=== PATIENT | female | born 1955 | race Caucasian/White ===

== ENCOUNTER 2017-07-24 18:05 | Inpatient (IN) | payer OTHER ==
[~2017-07-24] VITALS: Ht 162.6 cm; Wt 112.5 kg
[2017-07-24] MEDS ORDERED: SODIUM CHLORIDE 0.9% 1000ML 1,000 ML IV STA (18:07)
[2017-07-24] MEDS ORDERED: MORPHINE SULFATE 4 MG/ML SYR IV STA (18:07)
[2017-07-24] MEDS ORDERED: ONDANSETRON HCL INJ 2 MG/ML VIAL IV STA (18:07)
[2017-07-24] MEDS ORDERED: LIDOCAINE VISC 2% SOLN 15 ML UDC PO ONE (18:15)
[2017-07-24] MEDS ORDERED: MAGNESIUM/ALUMINUM/SIMETHICONE 30 ML UDC PO ONE (18:15)
[2017-07-24] MEDS ORDERED: BELLADONNA ALK/PHENOBARBITAL 5 ML UDC PO ONE (18:25)
[2017-07-24 18:40] LABS: BASOPHILS # (AUTO) 0.1 (0.0-0.1); BASOPHILS % 0.3 % (0.0-1.0); HEMATOCRIT 39.1 % (34.2-44.1); HEMOGLOBIN 13.4 g/dL (12.0-16.0); LYMPHOCYTES # (AUTO) 1.2 (1.0-3.2); LYMPHOCYTES % 4.8 % (18.0-39.1); MEAN CORPUSCULAR HEMOGLOBIN 30.2 pg (28-32); MEAN CORPUSCULAR HGB CONC 34.3 g/dL (31-35); MEAN CORPUSCULAR VOLUME 88.3 fL (81-99); MONOCYTES # (AUTO) 1.9 (0.2-0.8); MONOCYTES % 7.2 % (4.4-11.3); NEUTROPHILS # (AUTO) 22.4 (2.1-6.9); NEUTROPHILS % 86.9 % (38.7-80.0); PLATELET COUNT 251 x10e3/uL (140-360); RED BLOOD COUNT 4.43 x10e6/uL (3.6-5.1)
[2017-07-24] MEDS ORDERED: DIATRIZOATE MEGL/DIATRIZOA SOD 30 ML BTL PO ONE (18:57)
[2017-07-24 19:06] LABS: ALANINE AMINOTRANSFERASE 15 IU/L (0-55); ALBUMIN 3.8 g/dL (3.5-5.0); ALKALINE PHOSPHATASE 99 IU/L (40-150); ANION GAP 12.8 mmol/L (8-16); BLOOD UREA NITROGEN 16 mg/dL (7-26); BUN/CREATININE RATIO 16 (6-25); CARBON DIOXIDE 28 mmol/L (22-29); CHLORIDE 102 mmol/L (98-107); CREATINE KINASE 63 IU/L (29-168); CREATININE, SERUM 1.03 mg/dL (0.57-1.11); EST GLOMERULAR FILTRATION RATE 55 ML/MIN (60-); GLUCOSE 146 mg/dL (74-118); LIPASE 24 U/L (8-78); POTASSIUM 3.8 mmol/L (3.5-5.1); SODIUM 139 mmol/L (136-145)
[2017-07-24] MEDS ORDERED: MORPHINE SULFATE 2 MG/ML SYR ONE (19:06)
[2017-07-24] MEDS ORDERED: METRONIDAZOLE 500MG/NS 100ML 100 ML IV STA (19:49)
[2017-07-24] MEDS ORDERED: PIPER-TAZ 3.375 GM 50 ML IV STA (19:49)
[2017-07-24 20:05] LABS: BILIRUBIN,URINE NEGATIVE (NEGATIVE); CLARITY,URINE HAZY (CLEAR); COLOR,URINE YELLOW (YELLOW); KETONES,URINE 2+ (NEGATIVE); LEUKOCYTE ESTERASE ,URINE 2+ (NEGATIVE); NITRITE,URINE NEGATIVE (NEGATIVE); URINE UROBILINOGEN 0.2 mg/dL (0.2 - 1)
[2017-07-24 20:20] LABS: PROTEIN,URINE DIPSTICK 1+ (NEGATIVE)
[2017-07-24 20:23] LABS: BACTERIA,URINE FEW /HPF; EPITHELIAL CELLS,URINE FEW /LPF; WBC,URINE (MAN) 21-50 /HPF (0-5)
[2017-07-24] MEDS ORDERED: IOPAMIDOL 370 MG/ML 200 ML INFUS..BTL INJ ONE (20:35)
[2017-07-24] MEDS ORDERED: SODIUM CHLORIDE 0.9% 50ML 50 ML ONE (20:35)
--- NOTE | 2017-07-24 20:41 | Diagnostic Imaging Report ---
ADDENDUM #1 IMPRESSION: Correlation with CT abdomen with contrast performed later on the same day, demonstrate normal gallbladder wall thickening without pericholecystic inflammatory changes not supporting suspected acute cholecystitis. In addition, CT revealed acute appendicitis; please refer to report of that examination. This was discussed with Dr. Dumont at 8:50 PM on 07/24/2017. Signed by: Dr. Azalea Shelby M.D. on 07/24/2017 8:57 PM ORIGINAL REPORT EXAM: Gallbladder Ultrasound INDICATION: Right upper quadrant pain. COMPARISON: None. TECHNIQUE: Transverse and longitudinal images of the gallbladder were obtained. FINDINGS: Liver: 14.9 cm in length. Heterogeneous increased echogenicity. Gallbladder: Hydropic measuring 10.0 x 5.7 x 6.3 cm. Stones/Sludge: Subtle echogenic focus in the gallbladder neck suggesting calculi. Wall: 0.3 cm, upper limits of normal. Appearance: No wall thickening, pericholecystic fluid or hydrops. Sonographic Baneulos's Sign: Positive. Bile Ducts: Intrahepatic Ducts: No dilatation Extrahepatic Ducts: Common bile duct measures 0.55 cm, no dilatation Pancreas not well visualized due to shadowing from overlying bowel gas. Free Fluid: No ascites or pleural effusion IMPRESSION: 1. Gallbladder hydrops. Probable cholelithiasis. Gallbladder wall within upper limits of normal for thickness and a positive Banuelos's sign; the constellation of findings are concerning for acute calculus cholecystitis in the proper clinical setting. Signed by: Dr. Azalea Shelby M.D. on 07/24/2017 8:37 PM
--- NOTE | 2017-07-24 20:49 | Diagnostic Imaging Report ---
EXAMINATION: CHEST SINGLE (PORTABLE) INDICATION: FEVER ABD PAIN ELEV WBC COMPARISON: None FINDINGS: TUBES and LINES: None. LUNGS: Lungs are well inflated. Lungs are clear. There is no evidence of pneumonia or pulmonary edema. PLEURA: No pleural effusion or pneumothorax. HEART AND MEDIASTINUM: The cardiomediastinal silhouette is unremarkable. BONES AND SOFT TISSUES: No acute osseous lesion. Soft tissues are unremarkable. UPPER ABDOMEN: No free air under the diaphragm. IMPRESSION: No acute thoracic abnormality. Signed by: Dr. Azalea Shelby M.D. on 07/24/2017 8:46 PM
--- NOTE | 2017-07-24 20:59 | Diagnostic Imaging Report ---
EXAM: CT Abdomen and Pelvis WITH contrast INDICATION: Right-sided abdominal pain. Concern for appendicitis. COMPARISON: None. TECHNIQUE: Abdomen and pelvis were scanned utilizing a multidetector helical scanner from the lung base to the pubic symphysis after administration of IV contrast. Coronal and sagittal reformations were obtained. Routine protocol was performed. Scan was performed when during portal venous phase. IV CONTRAST: 150 mL of Isovue 370 ORAL CONTRAST: Gastrografin and water mixture. RADIATION DOSE: Total DLP: 827.93 mGy*cm Estimated effective dose: (DLP x 0.015 x size factor) mSv COMPLICATIONS: None FINDINGS: LINES and TUBES: None. LOWER THORAX: Unremarkable HEPATOBILIARY: No focal hepatic lesions. No biliary ductal dilation. GALLBLADDER: No calcified calculi in the gallbladder neck. No wall thickening. SPLEEN: No splenomegaly. PANCREAS: No focal masses or ductal dilatation. ADRENALS: No adrenal nodules KIDNEYS/URETERS: Kidneys enhance symmetrically. No hydronephrosis. No cystic or solid mass lesions. 2 mm calcification in lower pole of the right kidney on image 39 series 2 associated with cortical scarring may be sequela of infection or a nonobstructing calculus. GI TRACT: No abnormal distention, wall thickening, or evidence of bowel obstruction. Postsurgical changes involving the stomach suggesting gastric sleeve procedure. Appendix is dilated up to 1.4 cm in diameter, with significant surrounding fat stranding and trace volume fluid, consistent with a acute appendicitis. No abscess formation. Tiny, 1.0 cm diverticulum of the second portion of the duodenum. PELVIC ORGANS/BLADDER: Unremarkable. LYMPH NODES: No lymphadenopathy. VESSELS: Minimal calcification of the distal abdominal aorta and origin of celiac axis without aneurysmal dilatation. PERITONEUM / RETROPERITONEUM: No free air or fluid. BONES: Spondylosis of the lower thoracic spine. Facet arthropathy bilaterally at L5-S1. SOFT TISSUES: Unremarkable. IMPRESSION: 1. Acute appendicitis. No abscess formation. 2. Cholelithiasis. The findings on the CT examination does not support acute cholecystitis as suspected on ultrasound examination performed earlier on the same day. Discussed with Dr. Dumont at 8:50 PM on 07/24/2017. Signed by: Dr. Azalea Shelby M.D. on 07/24/2017 8:55 PM
[2017-07-24] MEDS ORDERED: ONDANSETRON HCL INJ 2 MG/ML VIAL IV PRN (21:15)
--- OUTSIDE RECORDS SUMMARY | 2017-07-24 21:30 | XMS REPORT ---
Author Author [facility] Address Unknown Phone Unavailable Care Team Providers Care Drawing Tender Name Role Phone CAMACHO FARIAS Unavailable Unavailable Problems This patient has no known problems. Allergies, Adverse Reactions, Alerts This patient has no known allergies or adverse reactions. Medications This patient has no known medications. Results Test Description Test Time Test Comments Text Results Atomic Results Result Comments CHEST SINGLE (PORTABLE) [place] [address] Patient Name: MARK PICHARDO MR #: [id number] : 1955 Age/Sex: 61/F Req #: [id number] Adm Physician: Ordered by: CAMACHO FARIAS MD Report #: [id number] Location: ER Room/Bed: Procedure: [id number] DX/CHEST SINGLE (PORTABLE) Exam Date: 07/24/17 Exam Time: 2014 REPORT STATUS: Signed EXAMINATION: CHEST SINGLE (PORTABLE) INDICATION: FEVER ABD PAIN ELEV WBC COMPARISON: None FINDINGS: TUBES and LINES: None. LUNGS: Lungs are well inflated. Lungs are clear. There is no evidence of pneumonia or pulmonary edema. PLEURA: No pleural effusion or pneumothorax. HEART AND MEDIASTINUM: The cardiomediastinal silhouette is unremarkable. BONES AND SOFT TISSUES: No acute osseous lesion. Soft tissues are unremarkable. UPPER ABDOMEN: No free air under the diaphragm. IMPRESSION: No acute thoracic abnormality. Signed by: Dr. Azalea Gordon M.D. on 07/24/2017 8:46 PM Dictated By: DONNY GORDON MD, MD 45 COPY TO: CAMACHO FARIAS MD CT ABDOMEN/PELVIS W [place] [address] Patient Name: MARK PICHARDO MR #: [id number] : 1955 Age/Sex: 61/F Req #: [id number] Adm Physician: Ordered by: ROSARIO JOHN NP Report #: [id number] Location: ER Room/Bed: Procedure: [id number] CT/CT ABDOMEN/PELVIS W Exam Date: 07/24/17 Exam Time: 2009 REPORT STATUS: Signed EXAM: CT Abdomen and Pelvis WITH contrast INDICATION: Right-sided abdominal pain. Concern for appendicitis. COMPARISON: None. TECHNIQUE: Abdomen and pelvis were scanned utilizing a multidetector helical scanner from the lung base to the pubic symphysis after administration of IV contrast. Coronal and sagittal reformations were obtained. Routine protocol was performed. Scan was performed when during portal venous phase. IV CONTRAST: 150 mL of Isovue 370 ORAL CONTRAST: Gastrografin and water mixture. RADIATION DOSE: Total DLP: 827.93 mGy*cm Estimated effective dose: (DLP x 0.015 x size factor) mSv COMPLICATIONS: None FINDINGS: LINES and TUBES: None. LOWER THORAX: Unremarkable HEPATOBILIARY: No focal hepatic lesions. No biliary ductal dilation. GALLBLADDER: No calcified calculi in the gallbladder neck. No wall thickening. SPLEEN: No splenomegaly. PANCREAS: No focal masses or ductal dilatation. ADRENALS: No adrenal nodules KIDNEYS/URETERS: Kidneys enhance symmetrically. No hydronephrosis. No cystic or solid mass lesions. 2 mm calcification in lower pole of the right kidney on image 39 series 2 associated with cortical scarring may be sequela of infection or a nonobstructing calculus. GI TRACT: No abnormal distention , wall thickening, or evidence of bowel obstruction. Postsurgical changes involving the stomach suggesting gastric sleeve procedure. Appendix is dilated up to 1.4 cm in diameter, with significant surrounding fat stranding and trace volume fluid, consistent with a acute appendicitis. No abscess formation. Tiny, 1.0 cm diverticulum of the second portion of the duodenum. PELVIC ORGANS/BLADDER: Unremarkable. LYMPH NODES: No lymphadenopathy. VESSELS: Minimal calcification of the distal abdominal aorta and origin of celiac axis without aneurysmal dilatation. PERITONEUM / RETROPERITONEUM : No free air or fluid. BONES: Spondylosis of the lower thoracic spine. Facet arthropathy bilaterally at L5-S1. SOFT TISSUES: Unremarkable. IMPRESSION: 1. Acute appendicitis. No abscess formation. 2. Cholelithiasis. The findings on the CT examination does not support acute cholecystitis as suspected on ultrasound examination performed earlier on the same day. Discussed with Dr. Farias at 8:50 PM on 07/24/2017. Signed by: Dr. Aazlea Gordon M.D. on 07/24/2017 8:55 PM Dictated By: DONNY GORDON MD, MD 54 Transcribed By: OSCAR on 07/24/172054 COPY TO: ROSARIO JOHN STRIP TANK TENDER GALLBLADDER [place] [address] Patient Name: MARK PICHARDO MR #: [id number] : 1955 Age/Sex: 61/F Req # : [id number] Adm Physician: Ordered by: ROSARIO JOHN NP Report #: [id number] Location: ER Room/Bed: Procedure: [id number] US/US GALLBLADDER Exam Date: 07/24/17 Exam Time: 1911 REPORT STATUS: Signed ADDENDUM #1 IMPRESSION: Correlation with CT abdomen with contrast performed later on the same day, demonstrate normal gallbladder wall thickening without pericholecystic inflammatory changes not supporting suspected acute cholecystitis. In addition, CT revealed acute appendicitis; please refer to report of that examination. This was discussed with Dr. Farias at 8:50 PM on . Signed by: Dr. Azalea Gordon M.D. on 07/24/2017 8:57 PM * ORIGINAL REPORT EXAM: Gallbladder Ultrasound INDICATION : Right upper quadrant pain. COMPARISON: None. TECHNIQUE: Transverse and longitudinal images of the gallbladder were obtained. FINDINGS: Liver: 14.9 cm in length. Heterogeneous increased echogenicity. Gallbladder: Hydropic measuring 10.0 x 5.7 x 6.3 cm. Stones/Sludge: Subtle echogenic focus in the gallbladder neck suggesting calculi. Wall: 0.3 cm, upper limits of normal. Appearance: No wall thickening, pericholecystic fluid or hydrops. Sonographic Banuelos's Sign: Positive. Bile Ducts: Intrahepatic Ducts: No dilatation Extrahepatic Ducts: Common bile duct measures 0.55 cm, no dilatation Pancreas not well visualized due to shadowing from overlying bowel gas. Free Fluid: No ascites or pleural effusion IMPRESSION: 1. Gallbladder hydrops. Probable cholelithiasis. Gallbladder wall within upper limits of normal for thickness and a positive Banuelos's sign; the constellation of findings are concerning for acute calculus cholecystitis in the proper clinical setting. Signed by: Dr. Azalea Gordon M.D. on 07/24/2017 8:37 PM Dictated By: DONNY GORDON MD, MD 56 Transcribed By: OSCAR on 07/24/172036 COPY TO: ROSARIO JOHN NP
[2017-07-24 21:48] VITALS: BP 128/79
[2017-07-24] MEDS: SODIUM CHLORIDE 0.9% 1000ML 1,000 ML IV SCH (21:48)
[2017-07-24] MEDS ORDERED: SYNTHROID125 MCG PO (22:25)
[2017-07-24] MEDS ORDERED: FUROSEMIDE40 MG PO (22:28)
[2017-07-25] VITALS (28 sets, daily range): BP systolic 88–140; BP diastolic 47–90
[2017-07-25] MEDS ORDERED: PIPER-TAZ 3.375 GM/50 ML BAG IV SCH
[2017-07-25] MEDS ORDERED: METRONIDAZOLE 500MG/NS 100ML IV SCH
[2017-07-25] MEDS: MORPHINE SULFATE 2 MG/ML SYR IV PRN ×3 (02:09→11:38)
[2017-07-25] MEDS: PIPER-TAZ 3.375 GM 50 ML IV SCH ×5 (02:09→20:56)
[2017-07-25] MEDS: METRONIDAZOLE 500MG/NS 100ML 100 ML IV SCH ×4 (03:05→21:25)
[2017-07-25] MEDS: SODIUM CHLORIDE 0.9% 1000ML 1,000 ML IV SCH (06:19)
[2017-07-25 06:31] LABS: BASOPHILS % 0.3 % (0.0-1.0); EOSINOPHILS % 0.3 % (0.0-6.0); HEMATOCRIT 32.7 % (34.2-44.1); HEMOGLOBIN 10.9 g/dL (12.0-16.0); LYMPHOCYTES % 6.1 % (18.0-39.1); MEAN CORPUSCULAR HEMOGLOBIN 29.9 pg (28-32); MEAN CORPUSCULAR HGB CONC 33.3 g/dL (31-35); MEAN CORPUSCULAR VOLUME 89.8 fL (81-99); MONOCYTES # (AUTO) 1.2 (0.2-0.8); MONOCYTES % 7.7 % (4.4-11.3); NEUTROPHILS # (AUTO) 13.4 (2.1-6.9); PLATELET COUNT 152 x10e3/uL (140-360); RED BLOOD COUNT 3.64 x10e6/uL (3.6-5.1); RED CELL DISTRIBUTION WIDTH 12.9 % (11.7-14.4)
[2017-07-25 06:59] LABS: BLOOD UREA NITROGEN 13 mg/dL (7-26); BUN/CREATININE RATIO 17 (6-25); CALCIUM 8.2 mg/dL (8.4-10.2); CARBON DIOXIDE 26 mmol/L (22-29); CHLORIDE 105 mmol/L (98-107); CREATININE, SERUM 0.75 mg/dL (0.57-1.11); EST GLOMERULAR FILTRATION RATE > 60 ML/MIN (60-); GLUCOSE 123 mg/dL (74-118); SODIUM 138 mmol/L (136-145)
[2017-07-25] MEDS ORDERED: METOCLOPRAMIDE HCL 10 MG/2ML VIAL IV PRN (17:00)
[2017-07-25] MEDS ORDERED: NALOXONE HCL INJ 0.4 MG/ML AMP IV PRN (17:00)
[2017-07-25] MEDS: SODIUM CHLORIDE 0.9% 250ML IRRIG IR SCH ×2 (17:00→20:53)
[2017-07-25] MEDS ORDERED: LIDOCAINE HCL 2% LOCAL INJ 5 ML SDV VIAL INJ ONE (17:00)
[2017-07-25] MEDS ORDERED: DIPHENHYDRAMINE HCL 25 MG CAP PO PRN (17:00)
[2017-07-25] MEDS ORDERED: PROPOFOL IV EMULSION 10 MG/ML 20 ML VIAL ONE (17:00)
[2017-07-25] MEDS ORDERED: HYDROMORPHONE 0.2MG/ML-SOD CHL 30ML PCA SYRINGE IV PRN (17:00)
[2017-07-25] MEDS ORDERED: SEVOFLURANE INHAL SOLN 250 ML PEN BTL ONE (17:00)
[2017-07-25] MEDS ORDERED: GLYCOPYRROLATE INJ 1MG/ 5 ML SYR ONE (17:00)
[2017-07-25] MEDS ORDERED: ROCURONIUM BROMIDE 10 MG/ML 5ML VIAL ONE (17:00)
[2017-07-25] MEDS ORDERED: ONDANSETRON HCL INJ 2 MG/ML VIAL ONE ×2 (17:00→17:55)
[2017-07-25] MEDS ORDERED: DIPHENHYDRAMINE HCL INJ 50 MG/ML VIAL IM PRN (17:00)
[2017-07-25] MEDS ORDERED: ONDANSETRON HCL INJ 2 MG/ML VIAL IV PRN (17:00)
[2017-07-25] MEDS ORDERED: ACETAMINOPHEN 1000 MG/100 ML IV PRN (17:00)
[2017-07-25] MEDS ORDERED: DEXAMETHASONE SOD PHOS INJ 4 MG/ML VIAL ONE (17:00)
[2017-07-25] MEDS ORDERED: KETOROLAC TROMETHAMINE 30 MG/ML VIAL IV PRN (17:00)
[2017-07-25] MEDS ORDERED: NEOSTIGMINE 5 MG/5ML SYR ONE (17:00)
[2017-07-25] MEDS ORDERED: LIDOCAINE HCL 2% 30 ML TUBE ONE (17:16)
[2017-07-25] MEDS ORDERED: MIDAZOLAM HCL 2 MG/2 ML VIAL ONE (17:28)
[2017-07-25] MEDS ORDERED: HYDROMORPHONE 0.2MG/ML-SOD CHL 30ML PCA SYRINGE IV ONE (17:28)
[2017-07-25] MEDS ORDERED: FENTANYL CITRATE/PF 100MCG/2 ML INJ ONE (17:28)
--- NOTE | 2017-07-25 17:53 | Operative Report ---
DATE OF PROCEDURE: July 25, 2017 PREOPERATIVE DIAGNOSIS: Acute appendicitis, retrocecal, high-riding, probably gangrenous with perforation. POSTOPERATIVE DIAGNOSIS: Acute appendicitis, retrocecal, high-riding, probably gangrenous with perforation. PROCEDURE PERFORMED: 1. Diagnostic laparoscopy. 2. Attempted laparoscopic appendectomy converted to open appendectomy. 3. Peritoneal irrigation. DRAINS: One 10 mm flat Neil-Billingsley drain and one 1/4 inch [place] drain to the wound. COMPLICATIONS: None. INDICATIONS AND FINDINGS: The patient is a morbidly obese female with a BMI of 41, admitted to the hospital complaining of abdominal pain for at least 4 days' duration. The pain was described by the patient as located in the right lower quadrant and right upper abdomen near the area of the umbilicus. She had been seen prior to the day of admission at a local clinic, and according to her history she had normal labs and was discharged home. The patient got progressively worse, came to the emergency room where a CT scan showed a very high-riding appendix consistent with appendicitis. In addition, she was found to have gallstones by ultrasound as well as a CT scan. However, there was no evidence of acute cholecystitis. INTRAOPERATIVE FINDINGS: The patient had acute appendicitis with a high-riding retrocecal appendicitis that was gangrenous, perforated and liquefacted with a fecaloid fluid collection located between the cecum and the abdominal wall with extensive fibrinous exudate. The inflammatory changes due to the appendicitis extended high into the cecum, and a cecectomy would not have accomplished the appendectomy without risking a leak. Because of this, a limited right hemicolectomy was then performed. The terminal ileum was stuck to the abdominal wall. It was difficult to separate from the abdominal wall in the lateral gutter, but in order to perform the appendectomy, we were able to do that. The anastomosis was made with a [id number] functional end-to-end stapled. DESCRIPTION OF PROCEDURE: With the patient lying on the operative table in the supine position after an administration of general endotracheal anesthesia, she was prepped and draped for diagnostic laparoscopy, possible laparoscopic appendectomy. The procedure was begun by establishing a pneumoperitoneum in the umbilical site after a stab wound was made in that location. A pneumoperitoneum was insufflated to 15 mm of pressure and then the 11-12 trocar placed in that location. We placed two other 5 mm trocars in the right upper quadrant midclavicular line area and another one in the suprapubic region to the right of the midline. We performed the laparoscopy as previously indicated. The proximal half of the appendix had pretty much evaporated, and the rest of the appendix was located posterior to the cecum. The right upper quadrant structures, including the stomach, were not well visualized due to the heaviness of her omentum, nor was the gallbladder. We decided to convert the procedure to an open one because of the severe inflammatory changes associated with appendicitis in the area of the cecum and the extension of the process to above the terminal ileum where it would have compromised the ileocecal valve in any attempts at a cecectomy. Because of this, we then converted the procedure to an open one after having tailored the incision to the location of the appendix, which was high-riding at the level of the umbilicus. A transverse Desmond-Declan muscle incision was made, deepened through the skin, subcutaneous tissue, and then the muscle-splitting abdominal entry was then performed. The cecum was mobilized along the white line of Toldt all the way to below the hepatic flexure. Proximally we mobilized the small bowel for about a foot and a half. We first had to detach it from the lateral gutter of the abdominal wall where it was stuck. After we got to a point where the small bowel was soft and pliable, as well as an area in the ascending colon that was soft and pliable and suitable for a yhii-aw-nrws anastomosis, we transected both ends with the stapler. We used the SLICK 75 stapler for both the small bowel as well as the ascending colon. We took down the blood supply to the distal small bowel and ascending colon with the Enseal Ethicon cautery. We then performed a huaw-hz-jckx anastomosis between the small bowel and the colon by excising the corners of both the small bowel and colon and then anastomosing that where it was soft with the fyxh-ii-tdlm firing of the SLICK 75 stapler with the blue load. We then applied a SLICK 90 stapler to close the rent. Prior to that, we examined the lumen of the bowel, and there was no bleeding. After firing the TA 90 stapler, we then reinforced the suture line with interrupted 3-0 silk. We closed the rent in the mesentery with a running 2-0 Vicryl. We copiously irrigated the abdomen multiple times. The anastomosis appeared to be viable. At this point, we closed the wound in layers using 1 Vicryl for all the abdominal wall layers, and 2-0 plain catgut was used for the subcutaneous tissue. The skin was closed with a combination of 2-0 silk and renata. The umbilical fascia was closed using 0 Vicryl, and then the skin was closed using renata, as well as the right midclavicular line trocar. A sterile dressing was applied. The patient tolerated the procedure well. At the end of the case and throughout the case, we performed multiple sponge and instrument counts, at least 3 of them, and they were all correct. The patient is going to be taken to the ICU for observation. Job#: [id number] EV
[2017-07-25] MEDS ORDERED: METOCLOPRAMIDE HCL 10 MG/2ML VIAL ONE (17:55)
[2017-07-25] MEDS: DEXTROSE 5%/LACTATED RINGERS 1,000 ML IV SCH (18:20)
[2017-07-25] MEDS: PANTOPRAZOLE 40 MG 10ML VIAL IV SCH (18:20)
[2017-07-26] VITALS (33 sets, daily range): BP systolic 86–156; BP diastolic 35–79
[2017-07-26] MEDS: SODIUM CHLORIDE 0.9% 250ML IRRIG IR SCH ×3 (00:47→08:21)
[2017-07-26] MEDS: DEXTROSE 5%/LACTATED RINGERS 1,000 ML IV SCH ×4 (00:47→17:50)
[2017-07-26] MEDS: PIPER-TAZ 3.375 GM 50 ML IV SCH ×4 (02:22→20:09)
[2017-07-26] MEDS: METRONIDAZOLE 500MG/NS 100ML 100 ML IV SCH ×4 (03:20→21:53)
[2017-07-26 06:13] LABS: BASOPHILS % 0.1 % (0.0-1.0); HEMATOCRIT 32.6 % (34.2-44.1); HEMOGLOBIN 10.9 g/dL (12.0-16.0); LYMPHOCYTES # (AUTO) 0.7 (1.0-3.2); LYMPHOCYTES % 4.1 % (18.0-39.1); MEAN CORPUSCULAR HEMOGLOBIN 29.9 pg (28-32); MEAN CORPUSCULAR HGB CONC 33.4 g/dL (31-35); MEAN CORPUSCULAR VOLUME 89.6 fL (81-99); MONOCYTES # (AUTO) 1.3 (0.2-0.8); MONOCYTES % 7.9 % (4.4-11.3); NEUTROPHILS # (AUTO) 14.4 (2.1-6.9); NEUTROPHILS % 87.5 % (38.7-80.0); PLATELET COUNT 213 x10e3/uL (140-360); RED BLOOD COUNT 3.64 x10e6/uL (3.6-5.1); RED CELL DISTRIBUTION WIDTH 12.7 % (11.7-14.4)
[2017-07-26 06:42] LABS: ALBUMIN 2.5 g/dL (3.5-5.0); ALBUMIN/GLOBULIN RATIO 0.7 (0.8-2.0); ANION GAP 10.3 mmol/L (8-16); CALCIUM 8.5 mg/dL (8.4-10.2); CREATININE, SERUM 0.96 mg/dL (0.57-1.11); POTASSIUM 4.3 mmol/L (3.5-5.1)
[2017-07-26 07:29] LABS: BAND NEUTROPHILS % (MANUAL) 11 %; LYMPHOCYTES % (MANUAL) 4 % (19-48); MONOCYTES % (MANUAL) 9 % (3.4-9.0); NEUTROPHILS % (MANUAL) 76 % (40-74)
[2017-07-26 07:30] LABS: PLATELET ESTIMATE ADEQUATE; PLATELET MORPHOLOGY COMMENT NORMAL; RBC MORPHOLOGY COMMENT NORMAL
[2017-07-26] MEDS: PANTOPRAZOLE 40 MG 10ML VIAL IV SCH (17:50)
[2017-07-27] VITALS (7 sets, daily range): BP systolic 109–136; BP diastolic 51–61
[2017-07-27] MEDS: PIPER-TAZ 3.375 GM 50 ML IV SCH ×4 (02:21→20:32)
[2017-07-27] MEDS: DEXTROSE 5%/LACTATED RINGERS 1,000 ML IV SCH ×3 (02:21→21:57)
[2017-07-27] MEDS: HYDROMORPHONE 0.2MG/ML-SOD CHL 30ML PCA SYRINGE IV PRN ×2 (02:36→11:00)
[2017-07-27] MEDS: METRONIDAZOLE 500MG/NS 100ML 100 ML IV SCH ×4 (03:33→21:10)
[2017-07-27 06:34] LABS: BASOPHILS % 0.1 % (0.0-1.0); EOSINOPHILS % 0.1 % (0.0-6.0); HEMATOCRIT 28.9 % (34.2-44.1); HEMOGLOBIN 9.6 g/dL (12.0-16.0); LYMPHOCYTES # (AUTO) 1.1 (1.0-3.2); LYMPHOCYTES % 7.7 % (18.0-39.1); MEAN CORPUSCULAR HEMOGLOBIN 29.6 pg (28-32); MEAN CORPUSCULAR HGB CONC 33.2 g/dL (31-35); MEAN CORPUSCULAR VOLUME 89.2 fL (81-99); MONOCYTES # (AUTO) 1.2 (0.2-0.8); MONOCYTES % 8.4 % (4.4-11.3); NEUTROPHILS # (AUTO) 11.6 (2.1-6.9); NEUTROPHILS % 83.1 % (38.7-80.0); PLATELET COUNT 252 x10e3/uL (140-360); RED BLOOD COUNT 3.24 x10e6/uL (3.6-5.1)
[2017-07-27 07:05] LABS: ALANINE AMINOTRANSFERASE 22 IU/L (0-55); ALBUMIN 2.3 g/dL (3.5-5.0); ALBUMIN/GLOBULIN RATIO 0.7 (0.8-2.0); ALKALINE PHOSPHATASE 77 IU/L (40-150); ANION GAP 8.7 mmol/L (8-16); BLOOD UREA NITROGEN 15 mg/dL (7-26); BUN/CREATININE RATIO 18 (6-25); CALCIUM 8.7 mg/dL (8.4-10.2); CARBON DIOXIDE 27 mmol/L (22-29); CHLORIDE 105 mmol/L (98-107); CREATININE, SERUM 0.84 mg/dL (0.57-1.11); EST GLOMERULAR FILTRATION RATE > 60 ML/MIN (60-); GLUCOSE 140 mg/dL (74-118); POTASSIUM 3.7 mmol/L (3.5-5.1); SODIUM 137 mmol/L (136-145)
[2017-07-27] MEDS ORDERED: HYDROMORPHONE 1MG/1ML INJ IV PRN (18:00)
[2017-07-27] MEDS: PANTOPRAZOLE 40 MG 10ML VIAL IV SCH (18:09)
[2017-07-27] MEDS: HYDROCODONE/APAP 7.5MG-325MG 1 EA TAB PO PRN (19:50)
[2017-07-28] VITALS (7 sets, daily range): BP systolic 109–140; BP diastolic 51–64
[2017-07-28] MEDS: PIPER-TAZ 3.375 GM 50 ML IV SCH ×4 (01:45→20:00)
[2017-07-28] MEDS: HYDROCODONE/APAP 7.5MG-325MG 1 EA TAB PO PRN ×4 (01:45→19:10)
[2017-07-28] MEDS: METRONIDAZOLE 500MG/NS 100ML 100 ML IV SCH ×4 (02:24→21:00)
[2017-07-28 08:57] LABS: BASOPHILS # (AUTO) 0.1 (0.0-0.1); BASOPHILS % 0.6 % (0.0-1.0); EOSINOPHILS # (AUTO) 0.2 (0.0-0.4); EOSINOPHILS % 1.7 % (0.0-6.0); HEMATOCRIT 32.5 % (34.2-44.1); HEMOGLOBIN 10.4 g/dL (12.0-16.0); LYMPHOCYTES # (AUTO) 1.8 (1.0-3.2); LYMPHOCYTES % 13.6 % (18.0-39.1); MEAN CORPUSCULAR HEMOGLOBIN 29.6 pg (28-32); MEAN CORPUSCULAR VOLUME 92.6 fL (81-99); MONOCYTES # (AUTO) 0.9 (0.2-0.8); NEUTROPHILS # (AUTO) 10.1 (2.1-6.9); NEUTROPHILS % 75.5 % (38.7-80.0); PLATELET COUNT 351 x10e3/uL (140-360); RED BLOOD COUNT 3.51 x10e6/uL (3.6-5.1); RED CELL DISTRIBUTION WIDTH 13.2 % (11.7-14.4)
[2017-07-28 09:17] LABS: ALANINE AMINOTRANSFERASE 24 IU/L (0-55); ALBUMIN 2.5 g/dL (3.5-5.0); ALBUMIN/GLOBULIN RATIO 0.7 (0.8-2.0); ALKALINE PHOSPHATASE 101 IU/L (40-150); ANION GAP 12.2 mmol/L (8-16); BLOOD UREA NITROGEN 11 mg/dL (7-26); BUN/CREATININE RATIO 13 (6-25); CALCIUM 9.1 mg/dL (8.4-10.2); CARBON DIOXIDE 30 mmol/L (22-29); CHLORIDE 102 mmol/L (98-107); CREATININE, SERUM 0.85 mg/dL (0.57-1.11); EST GLOMERULAR FILTRATION RATE > 60 ML/MIN (60-); GLUCOSE 100 mg/dL (74-118); POTASSIUM 3.2 mmol/L (3.5-5.1); SODIUM 141 mmol/L (136-145)
[2017-07-28] MEDS: DEXTROSE 5%/LACTATED RINGERS 1,000 ML IV SCH (15:30)
[2017-07-28] MEDS: POTASSIUM CHLORIDE 20MEQ/100ML 100 ML IV SCH ×2 (15:39→18:04)
[2017-07-28] MEDS: PANTOPRAZOLE 40 MG 10ML VIAL IV SCH (18:04)
[2017-07-29] VITALS (8 sets, daily range): BP systolic 110–169; BP diastolic 51–72
[2017-07-29] MEDS: PIPER-TAZ 3.375 GM 50 ML IV SCH ×4 (02:00→20:30)
[2017-07-29] MEDS: METRONIDAZOLE 500MG/NS 100ML 100 ML IV SCH ×2 (03:00→08:50)
[2017-07-29 06:51] LABS: BASOPHILS # (AUTO) 0.1 (0.0-0.1); BASOPHILS % 0.9 % (0.0-1.0); EOSINOPHILS # (AUTO) 0.5 (0.0-0.4); EOSINOPHILS % 3.7 % (0.0-6.0); HEMATOCRIT 30.9 % (34.2-44.1); HEMOGLOBIN 10.1 g/dL (12.0-16.0); LYMPHOCYTES # (AUTO) 1.7 (1.0-3.2); LYMPHOCYTES % 13.9 % (18.0-39.1); MEAN CORPUSCULAR HEMOGLOBIN 29.8 pg (28-32); MEAN CORPUSCULAR HGB CONC 32.7 g/dL (31-35); MEAN CORPUSCULAR VOLUME 91.2 fL (81-99); MONOCYTES # (AUTO) 0.9 (0.2-0.8); MONOCYTES % 7.6 % (4.4-11.3); NEUTROPHILS # (AUTO) 8.6 (2.1-6.9); NEUTROPHILS % 70.2 % (38.7-80.0); PLATELET COUNT 337 x10e3/uL (140-360); RED BLOOD COUNT 3.39 x10e6/uL (3.6-5.1); RED CELL DISTRIBUTION WIDTH 13.2 % (11.7-14.4)
[2017-07-29 07:44] LABS: ANION GAP 10.4 mmol/L (8-16); BLOOD UREA NITROGEN 9 mg/dL (7-26); BUN/CREATININE RATIO 11 (6-25); CALCIUM 8.6 mg/dL (8.4-10.2); CARBON DIOXIDE 28 mmol/L (22-29); CHLORIDE 105 mmol/L (98-107); CREATININE, SERUM 0.84 mg/dL (0.57-1.11); EST GLOMERULAR FILTRATION RATE > 60 ML/MIN (60-); GLUCOSE 137 mg/dL (74-118); POTASSIUM 3.4 mmol/L (3.5-5.1); SODIUM 140 mmol/L (136-145)
[2017-07-29 08:09] LABS: BAND NEUTROPHILS % (MANUAL) 1 %; EOSINOPHILS % (MANUAL) 4 % (0-7); LYMPHOCYTES % (MANUAL) 15 % (19-48); MONOCYTES % (MANUAL) 6 % (3.4-9.0); NEUTROPHILS % (MANUAL) 74 % (40-74); NUCLEATED RED BLOOD CELLS 1
[2017-07-29 08:10] LABS: PLATELET ESTIMATE ADEQUATE; PLATELET MORPHOLOGY COMMENT NORMAL; POLYCHROMASIA FEW; RBC MORPHOLOGY COMMENT NORMAL
[2017-07-29] MEDS: HYDROCODONE/APAP 7.5MG-325MG 1 EA TAB PO PRN ×3 (08:50→18:26)
[2017-07-29] MEDS ORDERED: POTASSIUM CHLORIDE 20 MEQ TAB CR PO STA (08:51)
[2017-07-29] MEDS ORDERED: LOPERAMIDE HCL 2 MG CAP PO ONE (09:00)
[2017-07-29] MEDS: LACTOBACILLUS ACIDOPHILUS CAPSULE PO SCH (09:15)
[2017-07-29] MEDS: POTASSIUM CHLORIDE 20 MEQ in DEXTROSE 5%/LACTATED RINGERS 1,000 ML IV SCH (10:38)
[2017-07-29] MEDS ORDERED: POTASSIUM CHLORIDE 20 MEQ TAB CR PO SCH (14:00)
[2017-07-29] MEDS: METRONIDAZOLE 500 MG TAB PO SCH ×2 (14:34→21:52)
[2017-07-29] MEDS: PANTOPRAZOLE 40 MG 10ML VIAL IV SCH (17:08)
[2017-07-30] VITALS (10 sets, daily range): BP systolic 100–176; BP diastolic 57–70
[2017-07-30] MEDS: HYDROCODONE/APAP 7.5MG-325MG 1 EA TAB PO PRN ×5 (00:38→21:30)
[2017-07-30] MEDS: PIPER-TAZ 3.375 GM 50 ML IV SCH ×4 (01:30→20:05)
[2017-07-30] MEDS: METRONIDAZOLE 500 MG TAB PO SCH ×3 (06:19→21:30)
[2017-07-30] MEDS: POTASSIUM CHLORIDE 20 MEQ in DEXTROSE 5%/LACTATED RINGERS 1,000 ML IV SCH (06:20)
[2017-07-30] MEDS: LACTOBACILLUS ACIDOPHILUS CAPSULE PO SCH (08:06)
[2017-07-30 09:22] LABS: BASOPHILS # (AUTO) 0.1 (0.0-0.1); BASOPHILS % 0.7 % (0.0-1.0); EOSINOPHILS # (AUTO) 0.4 (0.0-0.4); EOSINOPHILS % 2.9 % (0.0-6.0); HEMATOCRIT 33.3 % (34.2-44.1); HEMOGLOBIN 10.7 g/dL (12.0-16.0); LYMPHOCYTES # (AUTO) 2.1 (1.0-3.2); MEAN CORPUSCULAR HEMOGLOBIN 29.6 pg (28-32); MEAN CORPUSCULAR HGB CONC 32.1 g/dL (31-35); MEAN CORPUSCULAR VOLUME 92.2 fL (81-99); MONOCYTES # (AUTO) 1.1 (0.2-0.8); NEUTROPHILS # (AUTO) 10.7 (2.1-6.9); NEUTROPHILS % 71.5 % (38.7-80.0); PLATELET COUNT 402 x10e3/uL (140-360); RED BLOOD COUNT 3.61 x10e6/uL (3.6-5.1); RED CELL DISTRIBUTION WIDTH 13.3 % (11.7-14.4)
[2017-07-30 09:47] LABS: ANION GAP 9.4 mmol/L (8-16); BLOOD UREA NITROGEN 7 mg/dL (7-26); BUN/CREATININE RATIO 9 (6-25); CALCIUM 8.8 mg/dL (8.4-10.2); CARBON DIOXIDE 29 mmol/L (22-29); CHLORIDE 104 mmol/L (98-107); CREATININE, SERUM 0.81 mg/dL (0.57-1.11); EST GLOMERULAR FILTRATION RATE > 60 ML/MIN (60-); GLUCOSE 117 mg/dL (74-118); POTASSIUM 3.4 mmol/L (3.5-5.1); SODIUM 139 mmol/L (136-145)
[2017-07-30] MEDS ORDERED: POTASSIUM CHLORIDE 20 MEQ TAB CR PO ONE ×2 (11:15→15:00)
[2017-07-30] MEDS: PANTOPRAZOLE 40 MG 10ML VIAL IV SCH (17:27)
[2017-07-31 00:30] VITALS: BP 115/55
[2017-07-31] MEDS: PIPER-TAZ 3.375 GM 50 ML IV SCH ×3 (02:55→13:50)
[2017-07-31 04:00] VITALS: BP 146/66
[2017-07-31] MEDS: HYDROCODONE/APAP 7.5MG-325MG 1 EA TAB PO PRN ×2 (06:00→13:55)
[2017-07-31] MEDS: METRONIDAZOLE 500 MG TAB PO SCH ×2 (06:39→13:50)
[2017-07-31 09:07] VITALS: BP 122/56
[2017-07-31] MEDS: LACTOBACILLUS ACIDOPHILUS CAPSULE PO SCH (09:52)
--- NOTE | 2017-07-31 11:20 | Discharge Summary ---
PROCEDURES PERFORMED DURING THIS HOSPITALIZATION: Diagnostic laparoscopy and attempted laparoscopic appendectomy converted to right hemicolectomy by Dr. Alondra Knox on 07/25/2017. DISCHARGE DIAGNOSIS: Acute appendicitis, retrocecal, with perforation and peritonitis. HISTORY OF PRESENT ILLNESS: The patient is a 62-year-old female admitted to the hospital complaining of abdominal pain for several days. The patient was initially seen at a local clinic on the day of admission and then sent to the hospital. The patient was evaluated at [facility] where she was found to have right lower quadrant tenderness and a CT scan of the abdomen that revealed a high-riding appendix consistent with appendicitis. She was also found to have gallstones, but there was no evidence of cholecystitis. The patient's admission white count was 25,000. HOSPITALIZATION COURSE: Following admission, the patient was given intravenous antibiotics, hydrated, stabilized and underwent the above procedure on 07/25/2017. Postoperatively, the patient was monitored in the ICU for 1 day, then transferred to the floor. She was given intravenous antibiotics. The culture and sensitivities revealed E. coli sensitive to Zosyn which she was on as well as klebsiella sensitive to the Zosyn she had been treated with. She was also treated intravenously with Flagyl. She had a diet that was advanced to regular on the day of discharge. She did develop postop diarrhea that resolved by the time of discharge. The patient was discharged home in stable condition. She had a Neil-Billingsley drain to drain the pelvis and a Isr[place] drain that were removed the day prior to discharge. The wound was healing well. The patient was discharged in stable condition afebrile and tolerating her regular diet well. DISCHARGE MEDICATIONS: Included: 1. Levaquin 500 mg 1 p.o. daily for 2 days. 2. Flagyl 250 mg every 8 hours for 2 days. 3. Tylenol No. 3 one p.o. q.4-6 h. p.r.n. for pain, #40 with no refills. 4. Phenergan 25 mg 1 p.o. q.4-6 h. p.r.n. for nausea, no refills. She will be followed up in my office a week following discharge. She was given instructions regarding weight lifting, diet, activities, etc. FINAL DIAGNOSES 1. Acute gangrenous retrocecal appendicitis with perforation and peritonitis. 2. Cholelithiasis without evidence of cholecystitis. 3. Hypothyroidism. 4. Obesity. DAVID KNOX MD Job#: [id number]
[2017-07-31 12:36] VITALS: BP 154/67
[2017-07-31] MEDS ORDERED: PROMETHAZINE HC25 M1 PO (14:50)
[2017-07-31] MEDS ORDERED: TYLENOL WITH C1 EACH PO (14:50)
[2017-07-31] MEDS ORDERED: FLAGYL250 MG (14:51)
[2017-07-31] MEDS ORDERED: LEVAQUIN500 MG PO (14:51)
--- NOTE | 2017-07-31 14:51 | Operative Report ---
DATE OF PROCEDURE: ADDENDUM/CORRECTION TO PRIOR OPERATIVE REPORT PROCEDURE PERFORMED: 1. Diagnostic laparoscopy. 2. Attempted laparoscopic appendectomy converted to right hemicolectomy. 3. Peritoneal irrigation. Job#: [id number] EV
== END 2017-07-31 15:04 | disposition home or self-care (01) | DRG 330 ==
LOC: ER 18:05 → MED/SURG2 21:26 → ICU 07-25 15:32 → MED/SURG 07-26 21:04
PROVIDERS: ADMIT Surgery; ATTEND Surgery
PROC: 3E0M05Z Introduction of Adhesion Barrier into Peritoneal Cavity, Open Approach (ICD-10-PCS; principal; 2017-07-25 13:07)
PROC: 0DTJ0ZZ Resection of Appendix, Open Approach (ICD-10-PCS; principal; 2017-07-25 13:07)
PROC: 0DJD4ZZ Inspection of Lower Intestinal Tract, Percutaneous Endoscopic Approach (ICD-10-PCS; principal; 2017-07-25 13:07)
PROC: 0DTF0ZZ Resection of Right Large Intestine, Open Approach (ICD-10-PCS; principal; 2017-07-25 13:07)
DX: K35.2 Acute appendicitis with generalized peritonitis (principal); Z68.41 Body mass index [BMI] 40.0-44.9, adult; E66.01 Morbid (severe) obesity due to excess calories; B96.20 Unspecified Escherichia coli [E. coli] as the cause of diseases classified elsewhere; R19.7 Diarrhea, unspecified; K80.20 Calculus of gallbladder without cholecystitis without obstruction; E03.9 Hypothyroidism, unspecified; G47.33 Obstructive sleep apnea (adult) (pediatric)
CPT/HCPCS: 36415; 71045; 74177; 76705; 80048; 80053; 81001; 82550; 82553; 83605; 83690; 84484; 85025; 87040; 87071; 87075; 87086; 87186; 87205; 88307; 93005; 96361; 99284; J1100; J1885; J2001; J2250; J2270; J2405; J2543; J2765; J3480; J7030; J7120; Q9967

== ENCOUNTER → 2018-01-10 | Day surgery (SDC) | payer OTHER ==
[2017-12-27 16:13] LABS: BASOPHILS # (AUTO) 0.1 (0.0-0.1); BASOPHILS % 0.6 % (0.0-1.0); EOSINOPHILS # (AUTO) 0.2 (0.0-0.4); EOSINOPHILS % 1.9 % (0.0-6.0); HEMATOCRIT 39.3 % (34.2-44.1); HEMOGLOBIN 13.1 g/dL (12.0-16.0); LYMPHOCYTES # (AUTO) 2.3 (1.0-3.2); LYMPHOCYTES % 25.3 % (18.0-39.1); MEAN CORPUSCULAR HEMOGLOBIN 29.8 pg (28-32); MEAN CORPUSCULAR HGB CONC 33.3 g/dL (31-35); MEAN CORPUSCULAR VOLUME 89.5 fL (81-99); MONOCYTES # (AUTO) 0.6 (0.2-0.8); MONOCYTES % 6.6 % (4.4-11.3); NEUTROPHILS # (AUTO) 5.8 (2.1-6.9); NEUTROPHILS % 65.1 % (38.7-80.0); PLATELET COUNT 252 x10e3/uL (140-360); RED BLOOD COUNT 4.39 x10e6/uL (3.6-5.1); RED CELL DISTRIBUTION WIDTH 13.9 % (11.7-14.4)
--- NOTE | 2017-12-27 16:25 | Diagnostic Imaging Report ---
EXAMINATION: CHEST 2 VIEWS INDICATION: Preop for cholecystectomy COMPARISON: Chest x-ray 07/24/2017 FINDINGS: PA and lateral views TUBES and LINES: None. LUNGS: Lungs are well inflated. There is no evidence of pneumonia or pulmonary edema. PLEURA: No pleural effusion or pneumothorax. HEART AND MEDIASTINUM: The cardiomediastinal silhouette is unremarkable.. BONES AND SOFT TISSUES: Mild degenerative changes of the spine. No compression deformities. Soft tissues are unremarkable. UPPER ABDOMEN: No free air under the diaphragm. IMPRESSION: Stable chest. No acute cardiothoracic process. Signed by: Dr. Alisia Stern MD on 12/27/2017 4:22 PM
[2017-12-27 16:32] LABS: ANION GAP 14.7 mmol/L (8-16); CALCIUM 9.4 mg/dL (8.4-10.2); CREATININE, SERUM 0.97 mg/dL (0.57-1.11); POTASSIUM 3.7 mmol/L (3.5-5.1)
[~2018-01-10] MED LIST: ACETAMINOPHEN 1000 MG/100 ML IV ONE; BIOTIN PO; BUPIVACAINE 0.25%/EPI 30ML SDV INJ ONE; CALCIUM PO; CEFOXITIN SOD 1 GM VIAL ONE; DEXAMETHASONE SOD PHOS INJ 4 MG/ML VIAL ONE; FENTANYL CITRATE/PF 100MCG/2 ML INJ ONE; FLAGYL250 MG; FUROSEMIDE40 MG PO; GLYCOPYRROLATE INJ 1MG/ 5 ML SYR ONE; HYDROMORPHONE 1MG/1ML INJ ONE; LEVAQUIN500 MG PO; LIDOCAINE HCL 2% LOCAL INJ 5 ML SDV VIAL INJ ONE; MIDAZOLAM HCL 2 MG/2 ML VIAL ONE; MULTI-VITAMIN1 EACH PO; NEOSTIGMINE 5 MG/5ML SYR ONE; ONDANSETRON HCL INJ 2 MG/ML VIAL ONE; PROBIOTIC & AC1 EACH; PROMETHAZINE HC25 M1 PO; PROPOFOL IV EMULSION 10 MG/ML 20 ML VIAL ONE; ROCURONIUM BROMIDE 10 MG/ML 5ML VIAL ONE; SEVOFLURANE INHAL SOLN 250 ML PEN BTL ONE; SUCCINYLCHOLINE 200 MG/10 ML SYR ONE; SYNTHROID125 MCG PO; TYLENOL WITH C1 EACH PO; VITAMIN B-12 PO; VITAMIN D3 PO
[2018-01-10 06:54] LABS: ALANINE AMINOTRANSFERASE 16 IU/L (0-55); ALBUMIN 3.7 g/dL (3.5-5.0); ALKALINE PHOSPHATASE 79 IU/L (40-150); ANION GAP 15.2 mmol/L (8-16); BLOOD UREA NITROGEN 16 mg/dL (7-26); BUN/CREATININE RATIO 18 (6-25); CALCIUM 9.5 mg/dL (8.4-10.2); CARBON DIOXIDE 27 mmol/L (22-29); CHLORIDE 104 mmol/L (98-107); CREATININE, SERUM 0.88 mg/dL (0.57-1.11); EST GLOMERULAR FILTRATION RATE > 60 ML/MIN (60-); GLUCOSE 94 mg/dL (74-118); POTASSIUM 4.2 mmol/L (3.5-5.1); SODIUM 142 mmol/L (136-145)
--- NOTE | 2018-01-10 10:20 | Operative Report ---
DATE OF PROCEDURE: January 10, 2018 PREOPERATIVE DIAGNOSES 1. Chronic cholecystitis and cholelithiasis. 2. Status post gastric sleeve. 3. Status post right hemicolectomy for perforated appendicitis requiring right hemicolectomy. POSTOPERATIVE DIAGNOSES 1. Chronic cholecystitis and cholelithiasis. 2. Status post gastric sleeve. 3. Status post right hemicolectomy for perforated appendicitis requiring right hemicolectomy. PROCEDURE PERFORMED: Laparoscopic cholecystectomy, decompression of hydrops of the gallbladder and extensive lysis of adhesions ANESTHESIA: General endotracheal. ESTIMATED BLOOD LOSS: Minimal. DRAINS: None. COMPLICATIONS: None. INDICATIONS AND FINDINGS: This 62-year-old, obese female was admitted for cholecystectomy because of symptomatic cholelithiasis. The patient was found to have cholelithiasis and a distended gallbladder on previous hospitalization for perforated appendicitis in July of 2017. Now that she has healed from the previous surgery, she is admitted for cholecystectomy. Her preoperative liver chemistries were normal. There was no history of jaundice. INTRAOPERATIVE FINDINGS: The patient had multiple adhesions from multiple previous surgeries that required lysis of adhesions in addition to the cholecystectomy and a gallbladder that was somewhat distended with omental adhesions. It was adherent to part of the stomach in addition. The right lower quadrant was also, as well as the mid abdomen, filled with mainly omental adhesions from the previous surgeries. The cystic duct was not dilated. DESCRIPTION OF PROCEDURE: With the patient lying on the operative table in the supine position, after administration of general anesthesia, she was prepped and draped for laparoscopic cholecystectomy. The procedure was begun by establishing a pneumoperitoneum in the right upper quadrant mid-clavicular line after the saline drop test was performed. Pneumoperitoneum was insufflated to 15 mm of pressure, and then the 5 mm trocar was placed in that location. We introduced the 5-mm camera, and then we placed a 5-mm trocar in the periumbilical region, which was free of adhesions from the previous 2 surgeries. We placed a 10-11 trocar in that location. Then we rotated the patient to left up, and we placed a 10-11 subxiphoid port. Then we continued the extensive lysis of adhesions until we cleared the right upper quadrant along the right anterior axillary line so that we could place a 5-mm trocar in that location. There were some inflammatory changes around the gallbladder and hepatoduodenal ligament. In order to expose the operative field, we placed a 5th left upper quadrant trocar using 5 mm size also. Then we decompressed the gallbladder, which was somewhat tense, and we were able to then begin the dissection, lysing adhesions of the omentum to the gallbladder until we got to the neck of the gallbladder. We continued the dissection until we identified the cystic duct high in the neck of the gallbladder. We dissected the cystic duct until we identified the cystic-common bile duct junction as well as the cystic artery and part of the liver plate. At that point, we transected the cystic duct 3 times distally and once proximally and then transected it. The cystic artery was transected between titanium clips. Then we did continued the dissection. We identified what appeared to be a posterior branch that was transected between titanium clips also. Then we detached the gallbladder from the liver bed using electrocautery dissection. After we went ahead and did that, we placed the gallbladder in an Endo bag and removed it through the umbilical port. We inspected the operative field and irrigated the right upper quadrant. After ascertaining that there was no bleeding, no bile leak or apparent bowel injury, we released the pneumoperitoneum and closed the wound using #0 Vicryl for the umbilical fascia, 3-0 Vicryl for the subcutaneous tissue in that location as well as subxiphoid port, and the skin of all the ports was closed using renata. Marcaine 0.25% with epinephrine was given as a local block at the end of the case. Job#: [id number]
== END | disposition home or self-care (01) ==
LOC: OR 05:25
PROVIDERS: ATTEND Surgery
DX: K80.10 Calculus of gallbladder with chronic cholecystitis without obstruction (principal); K82.8 Other specified diseases of gallbladder; K82.1 Hydrops of gallbladder; Z98.84 Bariatric surgery status; Z98.0 Intestinal bypass and anastomosis status; K66.0 Peritoneal adhesions (postprocedural) (postinfection); E03.9 Hypothyroidism, unspecified; M50.20 Other cervical disc displacement, unspecified cervical region; Z01.810 Encounter for preprocedural cardiovascular examination; Z01.812 Encounter for preprocedural laboratory examination; Z01.811 Encounter for preprocedural respiratory examination
CPT/HCPCS: 36415 ×2; 47562; 71046; 80048; 80053; 85025; 88304; 93005; C1766; J0694; J1100; J1170; J2001; J2250; J2405; J3490